=== PATIENT | female | born 2005 | race Two or more races ===

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

== ENCOUNTER → 2025-03-20 | Outpatient (BNVA) | payer MEDICAID, SELFPAY | END | disposition home or self-care (01) | PROVIDERS: PCP Nurse Practitioner Primary Care; Referring Provider Nurse Practitioner Primary Care; Visit Provider Nurse Practitioner Primary Care | DX: Z00.00 Encounter for general adult medical examination without abnormal findings (principal); Z23 Encounter for immunization; E04.1 Nontoxic single thyroid nodule; Z13.220 Encounter for screening for lipoid disorders; Z13.31 Encounter for screening for depression | CPT/HCPCS: 90471; 90686; 99173; 99395; G0439 ==

== ENCOUNTER → 2025-04-17 | Outpatient (BNVA) | payer MEDICAID, SELFPAY | END | disposition home or self-care (01) | PROVIDERS: PCP Nurse Practitioner Primary Care; Referring Provider Nurse Practitioner Primary Care; Visit Provider Nurse Practitioner Primary Care | DX: E55.9 Vitamin D deficiency, unspecified (principal); R82.90 Unspecified abnormal findings in urine; R94.6 Abnormal results of thyroid function studies | CPT/HCPCS: 99212; G0463 ==